=== PATIENT | female | born 1965 | race Two or more races ===

== ENCOUNTER 2016-12-07 17:17 | Emergency (ER) | payer MEDICAID, OTHER ==
[~2016-12-07] VITALS: Ht 172.7 cm; Wt 81.6 kg
[2016-12-07] MEDS ORDERED: SODIUM CHLORIDE 0.9% 1,000 ML IV ONE (19:15)
[2016-12-07 19:25] LABS: DEFINITIVE VIEW TRANSMISSION; Hematocrit 25.1 % (36.0-46.0); Hemoglobin 7.6 g/dL (12.2-16.2); Mean Corpuscular Hemoglobin 19.8 pg (28.0-32.0); Mean Corpuscular Hgb Conc. 30.4 g/dL (32.0-36.0); Mean Corpuscular Volume 65.3 fL (80.0-100.0); Mean Platelet Volume 7.5 fL (7.4-10.4); Platelet Count (auto) 199 10^3/uL (140-450)
[2016-12-07 19:26] LABS: Red Cell Distribution Width 20.7 % (11.6-16.0)
[2016-12-07 19:27] LABS: Metamyelocytes % 0; Myelocytes % 0; Promyelocytes % 0; Reactive Lymphocytes 0
[2016-12-07 19:39] LABS: Albumin 3.5 g/dL (3.4-5.0); Anion Gap 12 (5-15); BUN/Creatinine Ratio 13.6; Blood Urea Nitrogen 8 mg/dL (7-18); Calcium 7.4 mg/dL (8.5-10.1); Carbon Dioxide 22 mmol/L (21-32); Chloride 110 mmol/L (98-107); GFR African American 139 mL/min; GFR Non-African American 115 mL/min; Glucose 101 mg/dL (74-106); Potassium 3.4 mmol/L (3.5-5.1); Salicylate 2.7 mg/dL (2.8-20.0); Sodium 144 mmol/L (136-145)
[2016-12-07 19:45] LABS: Acetaminophen < 2.0 ug/mL (10-30); Alkaline Phosphatase 68 U/L (45-117); Aspartate Aminotransferase 30 U/L (15-37); Bilirubin, Total 0.1 mg/dL (0.2-1.0); Total Protein 7.3 g/dL (6.4-8.2)
[2016-12-07 20:22] LABS: Anisocytosis Slight; Hypochromia Slight; Microcytosis Slight; Platelet Estimate Adequate; Tear Drop Cells FEW
[2016-12-07] MEDS ORDERED: NICOTINE 7MG/24HR TOPICAL PATCH TD ONE (20:30)
[2016-12-07 21:15] LABS: Urine Bilirubin Negative (Negative); Urine Blood Negative /uL (Negative); Urine Color Yellow (Yellow); Urine Glucose Normal (Normal); Urine Ketone Negative (Negative); Urine Nitrite Negative (Negative); Urine RBC <1 /hpf (0 - 4); Urine Squamous Epithelial Cell FEW /hpf (<5); Urine Urobilinogen Normal (Negative); Urine pH 5.5 (5.0-8.0)
[2016-12-07] MEDS ORDERED: CALCIUM CARB 500 MG CHEW TAB PO ONE (22:30)
[2016-12-07] MEDS ORDERED: POTASSIUM CHL 20 Meq TABLET PO ONE (22:30)
[2016-12-07] MEDS ORDERED: FOLIC ACID 1 MG TAB PO ONE (22:45)
[2016-12-07] MEDS ORDERED: MULTIPLE VITAMIN TAB PO ONE (22:45)
[2016-12-07] MEDS ORDERED: THIAMINE HCL 100 MG TAB PO ONE (22:45)
[2016-12-08] MEDS ORDERED: LORazepam 0.5 MG TAB PO ONE (03:45)
[2016-12-08] MEDS ORDERED: clonazePAM 0.5 MG TAB PO SCH (10:30)
[2016-12-08 21:00] VITALS: BP 147/97
== END 2016-12-08 21:23 | disposition short-term general hospital (02) ==
LOC: ER 17:23
DX: T43.222A Poisoning by selective serotonin reuptake inhibitors, intentional self-harm, initial encounter (principal); E83.51 Hypocalcemia; E87.6 Hypokalemia; D89.9 Disorder involving the immune mechanism, unspecified; D64.9 Anemia, unspecified; Y92.89 Other specified places as the place of occurrence of the external cause; F32.9 Major depressive disorder, single episode, unspecified; R10.13 Epigastric pain; F10.20 Alcohol dependence, uncomplicated
CPT/HCPCS: 36415; 80053; 80320; 80329; 81001; 81025; 85007; 85027; 85049; 93005; 94761; 96360; 99285; G0434; J7030